=== PATIENT | female | born 1990 | race Two or more races ===

== ENCOUNTER 2021-01-15 07:25 | Emergency (ER) | payer OTHER ==
[~2021-01-15] VITALS: Ht 157.5 cm; Wt 78.9 kg
[2021-01-15 08:47] LABS: Urine Bacteria NONE SEEN /hpf (None Seen); Urine Blood Negative /uL (Negative); Urine Mucus FEW (None Seen); Urine WBC 1 /hpf (0 - 5)
[2021-01-15 10:36] LABS: Basophils # (auto) 0 10 ^3/uL (0-0.2); Basophils % (auto) 0.5 % (0.0-2.0); Eosinophils # (auto) 0.1 10 ^3/uL (0-0.8); Eosinophils % (auto) 0.7 % (0.0-7.0); Hematocrit 40.7 % (36.0-46.0); Lymphocytes # (auto) 1.7 10 ^3/uL (0.4-5.4); Lymphocytes % (auto) 16.1 % (10.0-50.0); Mean Corpuscular Hemoglobin 30.7 pg (28.0-32.0); Mean Corpuscular Hgb Conc. 34.4 g/dL (32.0-36.0); Mean Corpuscular Volume 89.2 fL (80.0-100.0); Monocytes # (auto) 0.4 10 ^3/uL (0-1.3); Monocytes % (auto) 4.1 % (0.0-12.0); Neutrophils # (auto) 8.2 10 ^3/uL (1.6-8.6); Neutrophils % (auto) 78.6 % (37.0-80.0); Red Blood Cells 4.56 10^6/uL (4.0-5.20); Red Cell Distribution Width 12.6 % (11.8-14.3); White Blood Cell 10.5 10^3/uL (4.4-10.8)
[2021-01-15 10:46] LABS: Potassium 4.6 mmol/L (3.5-5.1)
[2021-01-15 10:54] LABS: Albumin 3.6 g/dL (3.4-5.0); BUN/Creatinine Ratio 15.7; Bilirubin, Total 0.4 mg/dL (0.2-1.0); Total Protein 7.4 g/dL (6.4-8.2)
[2021-01-15] MEDS ORDERED: TAMSULOSIN HYDROCHLORIDE 0.4 MG CAP PO ONE (13:30)
[2021-01-15] MEDS ORDERED: SODIUM CHLORIDE 0.9% 1,000 ML IV ONE (13:30)
[2021-01-15 16:56] VITALS: BP 132/82
== END 2021-01-15 16:56 | disposition home or self-care (01) ==
LOC: ER 07:25
DX: N13.2 Hydronephrosis with renal and ureteral calculous obstruction (principal)
CPT/HCPCS: 36415; 74176; 80053; 81001; 84702; 85025

== ENCOUNTER 2025-02-24 20:56 | Emergency (ER) | payer MEDICAID, OTHER ==
[~2025-02-24] VITALS: Ht 157.5 cm; Wt 84.0 kg
[2025-02-24 22:50] VITALS: BP 132/90; PULSE 82; RESP 15; TEMP 98; O2SAT 98
[2025-02-24] MEDS: PROCHLORPERAZINE EDISYLATE 5 MG/ML 2ML VIAL IM ONE (22:50)
[2025-02-24] MEDS: KETOROLAC TROMETH 60MG/2ML VIAL IM ONE (22:50)
--- NOTE | 2025-02-25 01:10 | ED.PDOC ---
HPI (NEURO) HPI Comments 34-year-old female presents to the ED chief complaint migraine x4 days. Patient reports history of migraines takes [id number] Tylenol as needed for the pain. She notes the Tylenol has not been helping. Denies any known injury. Denies weakness, numbness, nausea, vomiting, or worst headache of her life. Chief Complaint: Headache Time Seen by MD: 21:04 Primary Care Provider: MARY Reviewed Notes: Nurses Notes, Medications, Allergies Information Source: Patient Mode of Arrival: Ambulatory Past Medical History Past Medical History (Other): Migraine Surgical History: Denies all surgeries SERVICE CENTER ASSISTANT History: No Pertinent SERVICE CENTER ASSISTANT History Family History Family History: Reviewed,noncontributory to illness Social History Smoker: Non-Smoker Alcohol: Denies ETOH Use Drugs: Denies Drug Use Lives In: Home All Other Systems: Reviewed and Negative (See HPI) Physical Exam General Appearance: No Apparent Distress, Normal HEENT: Normal ENT Inspection, Pharynx Normal, TMs Normal Neck: Full Range of Motion, Non-Tender Respiratory: Lungs Clear, No Respiratory Distress, Normal Breath Sounds Cardiovascular: No Edema, No JVD, No Murmur, No Gallop, Normal Peripheral Pulses, Regular Rate/Rhythm Breast Exam: Deferred Gastrointestinal: No Organomegaly, Non Tender, No Pulsatile Mass, Normal Bowel Sounds, Soft Genitalia: Deferred Pelvic: Deferred Rectal: Deferred Extremities: Normal range of motion, No pedal edema Musculoskeletal : Apperance: Normal Neurologic: Alert, No Motor Deficits, Normal Affect, Normal Mood, No Sensory Deficits Cerebellar Function: Normal Reflexes: NOT DONE Skin: Dry, Normal Color, Warm Lymphatic: No Adenopathy Was a procedure done? Was a procedure done?: No Differential Diagnosis (SZ) Seizure: N/A Headache: Epidural Hemorrhage, Intracerebral Hemorrhage, Subarachnoid Hemorrhage, Subdural Hemorrhage, Mass Lesion, Meningitis X-Ray, Labs, Meds, VS Vital Signs Date Time Temp Pulse Resp B/P (MAP) Pulse Ox O2 Delivery O2 Flow Rate FiO2 02/24/25 22:50 98.0 85 15 132/90 (104) 98 98.0 02/24/25 22:50 82 15 98 Room Air 02/24/25 20:58 97.6 75 18 151/104 98 97.6 Current Medications Medications (Trade) Dose Ordered Sig/Lady Route Start Time Stop Time Status Last Admin Ketorolac Tromethamine (Toradol Injection) 60 mg ONCE ONCE IM 02/24/25 22:45 02/24/25 22:46 DC 02/24/25 22:50 Dexamethasone Sodium Phosphate (Decadron Injection) 10 mg ONCE ONCE IM 02/24/25 22:45 02/24/25 22:46 DC 02/24/25 22:51 Prochlorperazine Edisylate (Compazine Inj) 5 mg ONCE ONCE IM 02/24/25 22:45 02/24/25 22:46 DC 02/24/25 22:50 X-Ray, Labs, Meds, VS Comment Patient was given Toradol 60 mg IM, Compazine 5 mg IM, and Decadron 10 mg IM. Patient re-evaluation around 12 16 patient with no answer in the lobby and outside patient eloped without follow up. Time of 1ST Reevaluation: 21:04 Reevaluation 1ST: Unchanged Time of 2ND Reevaluation: 12:16 Reevaluation 2ND: Patient eloped Patient Education/Counseling: Diagnosis, Treatment Family Education/Counseling: No Family Present Departure 1 Departure Time of Disposition: 12:16 Impression: Primary Impression: Migraine Qualified Codes: G43.909 - Migraine, unspecified, not intractable, without status migrainosus Disposition: 07 LEFT AWOL/ELOPED Condition: Stable Discharged With: Self Critical Care Note Critical Care Time?: No Stability Stability form required: MARTI Hernandez Feb 25, 2025 01:10
== END 2025-02-25 00:16 | disposition left against medical advice (07) ==
LOC: ER 20:56
DX: G43.909 Migraine, unspecified, not intractable, without status migrainosus (principal); Z79.899 Other long term (current) drug therapy
CPT/HCPCS: 96372; 99284; J0780; J1100; J1885